=== PATIENT | female | born 1975 | race Caucasian/White ===

== ENCOUNTER 2024-07-19 10:36 | Emergency (ER) | payer SELFPAY ==
[2024-07-19 10:46] VITALS: BP 154/94; PULSE 106; TEMP 37.2; O2SAT 94; BMI 51.2
--- NOTE | 2024-07-19 10:54 | XR_ITS ---
The [address] [address] Patient Name: DONY CLARK MRN: [id number] date: 1975 Sex: F Assigned Patient Location: ER Current Patient Location: Accession/Order Number: [id number] Exam Date: 07/19/2024 11:00 Report Date: 07/19/2024 13:19 At the request of: PHOEBE SAM Procedure: XR chest 1V EXAM: XR chest 1V 07/19/2024 COMPARISON: PA and lateral chest 12/26/2013 FINDINGS: Cardiomediastinal contours are within normal limits. No dense consolidation, effusion, failure or pneumothorax noted. Patient is somewhat obese. Gallbladder surgically absent. No acute osseous abnormality noted. HISTORY: cough XR/XR chest 1V IMPRESSION: No acute cardiopulmonary process suspected. Electronically authenticated by: DEBRA GORDILLO Date: 07/19/2024 13:19
[2024-07-19 11:16] LABS: Influenza Virus A Antigen Negative; Influenza Virus B Antigen Negative; Internal Control Within Normal Limits; Respiratory Syncytial Virus Not Detected (NOT DETECTE); SARS-CoV-2 Ag NEGATIVE (NEGATIVE)
--- NOTE | 2024-07-19 12:06 | ED_ITS ---
HPI - URI/Sore Throat General Chief Complaint: Upper Respiratory Infection Stated Complaint: COUGH, FEVER Time Seen by Provider: 07/19/24 10:45 Source: patient History of Present Illness HPI Narrative: The patient is coming to the ER with a cough for the last 1 month associated with phlegm She did mention that she felt like she have sore throat and she does have some chills for the last few days The patient denies any other complaints but she works in daycare and she been exposed to multiple people with multiple illness Related Data Previous Rx's ?Medication ?Instructions ?Recorded azithromycin 250 mg tablet See Rx Instructions PO .COMPLEX #6 07/19/24 (Zithromax Z-Rick) tabs prednisone 20 mg tablet 40 mg (2 x 20 mg) PO DAILY 5 days 07/19/24 #10 tabs Allergies Allergy/AdvReac Type Severity Reaction Status Date / Time Sulfa (Sulfonamide Allergy Nausea Verified 07/19/24 10:46 Antibiotics) Review of Systems ROS Status of ROS 10 or more systems reviewed and unremark able except as noted in history and below PFSH PFSH Social History Little interest or pleasure in doing things: not at all Feeling down, depressed, or hopeless: several days Exam Narrative Exam Narrative: Nurses notes and vital signs reviewed and patient is not hypoxic. General: Well-appearing and in no apparent distress. Skin: Warm, dry, no pallor noted. No rash. Head: Normocephalic, atraumatic. Neck: Supple, non-tender. Eye: Pupils are equal, round and EOMI. No scleral icterus. Ears, Nose, Mouth, and Throat: TM are clear, no nasal mucosal hypertrophy. Oral mucosa is moist, no posterior oropharynx erythema, uvula is mid-line Cardiovascular: Regular Rate and Rhythm without murmur, gallop or rub. Respiratory: Rhonchi heard in both lung florez Back: No midline thoracic or lumbar vertebral tenderness. No CVA tenderness Musculoskeletal: normal ROM, no calf or popliteal tenderness, no lower extremity edema/swelling GI: Abdomen is soft, non-distended. Normal bowel sounds. No masses appreciated. No tenderness to palpation. No rebound, guarding, or rigidity noted. Neurological: A&O x4. No cranial nerve dysfunction observed. No truncal ataxia. Moves all extremities. Sensation intact. Psychiatric: Cooperative and interactive. Normal mood and affect. Constitutional Vital Signs, click to edit/add: Last Vital Signs Temp 99.0 F 07/19/24 10:46 Pulse 106 H 07/19/24 10:46 Resp 18 07/19/24 10:46 BP 154/94 H 07/19/24 10:46 Pulse Ox 94 L 07/19/24 10:46 O2 Del Method Room Air 07/19/24 10:46 Course Vital Signs Vital signs: Vital Signs Temperature 99.0 F 07/19/24 10:46 Pulse Rate 106 H 07/19/24 10:46 Respiratory Rate 18 07/19/24 10:46 Blood Pressure 154/94 H 07/19/24 10:46 Pulse Oximetry 94 L 07/19/24 10:46 Oxygen Delivery Method Room Air 07/19/24 10:46 Temperature 99.0 F 07/19/24 10:46 Pulse Rate 106 H 07/19/24 10:46 Respiratory Rate 18 07/19/24 10:46 Blood Pressure 154/94 H 07/19/24 10:46 Pulse Oximetry 94 L 07/19/24 10:46 Oxygen Delivery Method Room Air 07/19/24 10:46 MDM - URI/Sore Throat MDM Narrative Medical decision making narrative: COVID flu and RSV test are negative Chest x-ray showed no acute pathology but the patient symptoms has been going on at least for a month with her history I will started the patient on antibiotic as well as prednisone The patient is to follow up with primary care physician in next 2-3 days or to return to the emergency department should any of the signs or symptoms worsen or new symptoms develop. The patient agrees with the following Diagnosis and Treatment plan and the patient will be discharged home. Lab Data Labs: Lab Results 07/19/24 Range/Units 10:55 Influenza Type A Ag Negative Influenza Type B Ag Negative RSV Antigen Not detected (NOT DETECTE) SARS-CoV-2 Ag (CV2AG) Negative (NEGATIVE) Discharge Plan Discharge Chief Complaint: Upper Respiratory Infection Clinical Impression: Cough Patient Disposition: Home, Self-Care Time of Disposition Decision: 12:24 Condition: Good Prescriptions / Home Meds: New azithromycin [Zithromax Z-Rick] 250 mg tablet See Rx Instructions .ROUTE .COMPLEX Qty: 6 0RF Rx Instructions: For 250 mg dose pack: take 500 mg today (day 1), then 250 mg for 4 days (days 2-5) prednisone 20 mg tablet 40 mg PO DAILY 5 Days Qty: 10 0RF Print Language: Yakut Instructions: Chronic Cough (ED) Referrals: [facility] [Primary Care Provider] - 1 week Discharge Date/Time: 07/19/24 12:36
== END 2024-07-19 12:36 | disposition home or self-care (01) ==
PROVIDERS: Emergency Provider Emergency Medicine
DX: R05.9 Cough, unspecified (principal)
CPT/HCPCS: 71045; 87420; 87804; 87811; 99284

== ENCOUNTER 2024-11-06 07:30 | Emergency (ER) | payer OTHER, SELFPAY ==
[2024-11-06 07:35] VITALS: PULSE 80; TEMP 36.6; O2SAT 98; BMI 47.9
--- OUTSIDE RECORDS SUMMARY | 2024-11-06 07:38 | XMS_ITS | CCD ---
Author Organization [facility] Care Team Providers Care Assemblyman Or Woman Name Role Phone YESSY, DR GARCIA Primary Care Unavailable KRISTIE, DR JOHNSON Consulting Unavailable HAY, DR JOHNSON Admitting Unavailable HAY, DR JOHNSON Attending Unavailable INOCENCIA, SHARON Admitting Unavailable SHARON PRO Attending Unavailable KIRANC, DR GARCIA Primary Care Unavailable ZIEBER, DR NIC Sky Consulting Unavailable INOCENCIA, SHARON Consulting Unavailable MISC, DR GARCIA Primary Care Unavailable HAY, DR JOHNSON Admitting Unavailable HAY, DR JOHNSON Attending Unavailable HAY, DR JOHNSON Consulting Unavailable Oksana Holliday Unavailable Evita Stoner Unavailable NON STAFF Primary Care Unavailable Oksana Holliday Attending Unavailable Oksana Holliday Admitting Unavailable [facility] Primary Care Unava ilable NIC SAUNDERS Attending Unavailable RENE HARTMANN Attending Unavailable RENE HARTMANN Referring Unavailable [facility] Primary Care Unava ilable [facility] Primary Care Unava ilable RENE HARTMANN Attending Unavailable Allergies Allergy Classification Reported Allergen(s) Allergy Type Date of Onset Reaction(s) Facility (1 source) Sulfonamides (Antibiotic) Drug allergy (disorder) [address] [facility] Repository (10 sources) Substance with sulfonamide structure and antibacterial mechanism of action (substance) Drug allergy Unknown [facility] Other (2 sources) Sulfonamides (Antibiotic); Translations: [SULFA (SULFONAMIDE ANTIBIOTICS)] Drug allergy (disorder) 7 [facility] Repository Medications Current Medications Medication Drug Class(es) Dates Sig (Normalized) Sig (Original) Jencycla (3 sources) Start: 06-23-2023 Jencycla May, Active 3 ml liraglutide 6 mg/ml pen injector (6 sources) GLP-1 Receptor Agonist Start: 05-09-2023 inject 0.6 mg by subcutaneous injection once daily Victoza 18 MG/3ML 0.6 mg Subcutaneous daily for 30 days Titrate to 1.2 mg daily Apr, Active inject 1.2 mg by sub cutaneous injection once daily Victoza 18 MG/3ML 1.2 mg Subcutaneous daily for 30 days dispense QS for 1.2 mg daily Active lisinopril 2.5 mg oral tablet (6 sources) Angiotensin Converting Enzyme Inhibitor take 1 tablet by mouth every twenty-four hours Lisinopril 2.5 MG 1 tablet Orally Once a day for 30 days Active 24 hr metFORMIN hydrochloride 500 mg extended release oral tablet (6 sources) Biguanide take 1 tablet by mouth once daily metFORMIN HCl ER 500 MG take 1 tablet by mouth daily WITH EVENING MEAL Oral for 30 Days Active rosuvastatin calcium 5 mg oral tablet (6 sources) HMG-CoA Reductase Inhibitor take 1 tablet by mouth once daily Rosuvastatin Calcium 5 MG take 1 tablet by mouth once daily Oral for 30 Days Active Completed/Discontinued Medications Medication Drug Class(es) Dates Sig (Normalized) Sig (Original) Cholecalciferol (14 sources) Vitamin D Start: 04-03-2023 take 1 capsule by mouth every week as needed Cholecalciferol 1.25 MG (50782 UT) 1 capsule Orally weekly for 56 days Follow with 4000 international units once daily thereafter Mar, Not-Taking/PRN Start: 04-03-2023 take 1 capsule by mo uth every week Cholecalciferol 1.25 MG (00337 UT) 1 capsule Orally weekly for 56 days Follow with 4000 international units once daily thereafter Mar, Active take 2 capsules by m outh every twenty-four hours Vitamin D3 50 MCG (2000 UT) 2 capsules Orally Once a day Active take 1 capsule by mo uth every week Cholecalciferol 1.25 MG (13515 UT) 1 capsule Orally weekly for 56 days then 4000 iu OTC after Active Problems Active Problems Problem Classification Problem Date Documented Da te Episodic/Chronic Anal and rectal conditions (1 source) Anal fissure, unspecified; Translations: [Anal fissure, unspecified] Onset: 5 Episodic Diabetes mellitus without complication (8 sources) Type 2 diabetes mellitus without complication; Translations: [Type 2 diabetes mellitus without complications] Chronic Diabetes mellitus without complication (4 sources) Other abnormal glucose Episodic Disorders of lipid metabolism (20 sources) Hypertriglyceridemia; Translations: [Pure hyperglyceridemia] Chronic Essential hypertension (15 sources) Essential (primary) hypertension; Translations: [Hypertensive disorder] Onset: 2 Chronic Gastrointestinal hemorrhage (1 source) Rectal hemorrhage Onset: 5 Episodic Gastrointestinal hemorrhage (1 source) Gastrointestinal hemorrhage Onset: 5 Mood disorders (14 sources) Major depressive disorder, single episode, unspecified; Translations: [Depression] Chronic Nutritional deficiencies (14 sources) Vitamin D deficiency; Translations: [Vitamin D deficiency, unspecified] Chronic Other connective tissue disease (4 sources) Pain in right foot; Translations: [PAIN IN RIGHT FOOT] Onset: 2 Episodic Other nutritional; endocrine; and metabolic disorders (10 sources) Body mass index 40+ - severely obese; Translations: [Body mass index (BMI) 45.0-49.9, adult] Chronic Other nutritional; endocrine; and metabolic disorders (10 sources) Metabolic syndrome X; Translations: [Metabolic syndrome] Chronic Other nutritional; endocrine; and metabolic disorders (19 sources) Obesity; Translations: [Obesity, unspecified] 08-12-2023 Chronic Other nutritional; endocrine; and metabolic disorders (5 sources) Obesity, unspecified Chronic Other nutritional; endocrine; and metabolic disorders (5 sources) Body mass index (BMI) 45.0-49.9, adult Chronic Other nutritional; endocrine; and metabolic disorders (4 sources) Metabolic syndrome Chronic Other nutritional; endocrine; and metabolic disorders (8 sources) Obese class II; Translations: [Body mass index (BMI) 35.0-35.9, adult] Chronic Spondylosis; intervertebral disc disorders; other back problems (3 sources) Lumbago with sciatica, left side; Translations: [Dorsalgia, unspecified] Onset: 2 Episodic Unclassified (2 sources) LOW BACK PAIN, UNSPECIFIED; Translations: [LOW BACK PAIN, UNSPECIFIED] Onset: 2 Unclassified (2 sources) CONTACT W/AND (SUSP) EXPOS COVID-19; Translations: [CONTACT W/AND (SUSP) EXPOS COVID-19] Onset: 1 Viral infection (1 source) COVID-19; Translations: [COVID-19] Onset: 1 Past or Other Problems Problem Classification Problem Date Documented Da te Episodic/Chronic Abdominal pain (1 source) Epigastric pain; Translations: [Epigastric pain] Onset: 10-23-2023 Episodic Administrative/social admission (1 source) Dietary counseling and surveillance; Translations: [Dietary counseling and surveillance] Onset: 06-27-2023 Episodic Nonspecific chest pain (2 sources) Chest pain, unspecified; Translations: [Chest pain] Onset: 10-23-2023 Episodic Other aftercare (1 source) Other superintendent terminal (current) drug therapy; Translations: [OTH PROFESSOR OF BIOLOGICAL SCIENCES CURRENT DRUG THERAPY] Onset: 09-05-2021 Episodic Other aftercare (1 source) oil heaterman (current) use of oral hypoglycemic drugs; Translations: [NURSING HOME USE ORAL HYPOGLYCEMIC DX] Onset: 09-05-2021 Episodic Residual codes; unclassified (1 source) Acquired absence of other specified parts of digestive tract; Translations: [ACQ ABSENCE OTH PART DIGESTV TRACT] Onset: 09-05-2021 Episodic Unclassified (1 source) LOW BACK PAIN, UNSPECIFIED; Translations: [LOW BACK PAIN, UNSPECIFIED] Onset: 09-01-2021 Unclassified (1 source) CONTACT W/AND (SUSP) EXPOS COVID-19; Translations: [CONTACT W/AND (SUSP) EXPOS COVID-19] Onset: 06-18-2021 Results Test Name Value Interpretation Reference Range Facility CBC AND AUTO DIFFon 10-23-19 24 ABSOLUTE BASOPHIL 0.1 X10E9/L Normal 0.0-0.2 [facility] Comment on above: Performed By: #### C ANDRES, 92490-7, [facility], 14325-8 #### [facility] ([id number]) [address] [place] [address] 87678 ABSOLUTE NEUTROPHIL 3.4 X10E9/L Normal 1.5-6.6 [facility] Comment on above: Performed By: #### C ANDRES, 52092-6, [facility], 15302-1 #### [facility] ([id number]) [address] [place] [address] 09245 Basophils/100 WBC (Bld) 0.9 % Normal [facility] Comment on above: Performed By: #### Mp CAMPOS, 05560-3, CMP, 21291-5 #### [facility] ([id number]) [address] [place] [address] 78667 Eosinophils (Bld) [#/Vol] 0.1 10*3/uL Normal 0.0-0.4 [facility] Comment on above: Performed By: #### Mp CAMPOS, 77763-3, CMP, 10305-2 #### [facility] ([id number]) [address] [place] [address] 49611 Eosinophils/100 WBC (Bld) 1.9 % Normal [facility] Comment on above: Performed By: #### Mp CAMPOS, 48164-1, CMP, 41335-8 #### [facility] ([id number]) [address] [place] [address] 51991 Erythrocyte distribution width (RBC) [Ratio] 14.5 % Normal 11.5-15.0 [facility] Comment on above: Performed By: #### Mp CAMPOS, 35141-4, CMP, 50989-1 #### [facility] ([id number]) [address] [place] [address] 35671 Hematocrit (Bld) [Volume fraction] 36.0 % Normal 35-47 [facility] Comment on above: Performed By: #### Mp CAMPOS, 43597-3, CMP, 81214-3 #### [facility] ([id number]) [address] [place] [address] 43617 Hemoglobin (Bld) [Mass/Vol] 12.2 g/dL Normal 11.7-15.5 [facility] Comment on above: Performed By: #### Mp CAMPOS, 56660-2, CMP, 97474-8 #### [facility] ([id number]) [address] [place] [address] 47089 Lymphocytes (Bld) [#/Vol] 2.5 10*3/uL Normal 1.0-3.5 [facility] Comment on above: Performed By: #### Mp CAMPOS, 20836-4, CMP, 91876-4 #### [facility] ([id number]) [address] [place] [address] 20963 Lymphocytes/100 WBC (Bld) 38.1 % Normal [facility] Comment on above: Performed By: #### Mp CAMPOS, 90215-5, CMP, 44338-6 #### [facility] ([id number]) [address] [place] [address] 51334 MCH (RBC) [Entitic mass] 29.4 pg Normal 27-34 [facility] Comment on above: Performed By: #### Mp CAMPOS, 50600-2, CMP, 75630-4 #### [facility] ([id number]) [address] [place] [address] 44390 MCHC (RBC) [Mass/Vol] 34.0 g/dL Normal 32-36 [facility] Comment on above: Performed By: #### Mp CAMPOS, 79494-4, CMP, 92471-0 #### [facility] ([id number]) [address] [place] [address] 37904 MCV (RBC) [Entitic vol] 87 fL Normal 80-100 [facility] Comment on above: Performed By: #### Mp CAMPOS, 69707-8, CMP, 52948-2 #### [facility] ([id number]) [address] [place] [address] 00083 Monocytes (Bld) [#/Vol] 0.4 10*3/uL Normal 0-0.9 [facility] Comment on above: Performed By: #### Mp CAMPOS, 06031-5, CMP, 15958-3 #### [facility] ([id number]) [address] [place] [address] 07922 Monocytes/100 WBC (Bld) 6.6 % Normal [facility] Comment on above: Performed By: #### Mp CAMPOS, 21950-9, CMP, 85522-9 #### [facility] ([id number]) [address] [place] [address] 74622 Neutrophils/100 WBC (Bld) 52.5 % Normal [facility] Comment on above: Performed By: #### Mp CAMPOS, 86618-6, CMP, 65305-2 #### [facility] ([id number]) [address] [place] [address] 52184 Platelet mean volume (Bld) [Entitic vol] 7.4 fL Normal 7-12 [facility] Comment on above: Performed By: #### Mp CAMPOS, 34503-1, CMP, 39557-6 #### [facility] ([id number]) [address] [place] [address] 41353 Platelets (Bld) [#/Vol] 363 10*3/uL Normal 150-450 [facility] Comment on above: Performed By: #### Mp CAMPOS, 10220-2, CMP, 24796-8 #### [facility] ([id number]) [address] [place] [address] 10433 RBC COUNT 4.16 X10E12/L Normal 3.80-5.20 [facility] Comment on above: Performed By: #### Mp CAMPOS, 13690-5, CMP, 74576-4 #### [facility] ([id number]) [address] [place] [address] 00336 WBC (Bld) [#/Vol] 6.5 10*3/uL Normal 4.0-11.0 [facility] Comment on above: Performed By: #### Mp CAMPOS, 29580-4, CMP, 15869-4 #### [facility] ([id number]) [address] [place] [address] [place] [address] COMPREHENSIVE METABOLIC PANE Alex 10-23-2023 Albumin [Mass/Vol] 3.9 g/dL Normal 3.2-5.3 [facility] Comment on above: Performed By: #### C BCA, 21871-5, CMP, 66183-7 #### [facility] ([id number]) [address] [place] [address] 69057 ALP [Catalytic activity/Vol] 102 U/L Normal 39-130 [facility] Comment on above: Performed By: #### Mp BCA, 73627-7, CMP, 24075-1 #### [facility] ([id number]) [address] [place] [address] 39002 ALT [Catalytic activity/Vol] 19 U/L Normal 0-31 [facility] Comment on above: Performed By: #### Mp BCA, 37832-4, CMP, 00989-9 #### [facility] ([id number]) [address] [place] [address] 31847 Anion gap [Moles/Vol] 7 mmol/L Normal 5-15 [facility] Comment on above: Performed By: #### Mp BCA, 63316-8, CMP, 41567-1 #### [facility] ([id number]) [address] [place] [address] 81377 AST [Catalytic activity/Vol] 18 U/L Normal 0-41 [facility] Comment on above: Performed By: #### C BCA, 03830-6, CMP, 55474-3 #### [facility] ([id number]) [address] [place] [address] 86499 Bilirubin [Mass/Vol] 0.6 mg/dL Normal 0.3-1.2 [facility] Comment on above: Performed By: #### Mp BCA, 51559-2, CMP, 10646-5 #### [facility] ([id number]) [address] [place] [address] 02096 Calcium [Mass/Vol] 8.6 mg/dL Normal 8.5-10.5 [facility] Comment on above: Performed By: #### C BCA, 81405-7, CMP, 13429-0 #### [facility] ([id number]) [address] [place] [address] 11071 Chloride [Moles/Vol] 102 mmol/L Normal 98-109 [facility] Comment on above: Performed By: #### C BCA, 91613-9, CMP, 02431-2 #### [facility] ([id number]) [address] [place] [address] 18864 CO2 [Moles/Vol] 25 mmol/L Normal 22-32 [facility] Comment on above: Performed By: #### C BCA, 43370-3, CMP, 36806-8 #### [facility] ([id number]) [address] [place] [address] 67501 Creatinine [Mass/Vol] 0.79 mg/dL Normal 0.40-1.00 [facility] Comment on above: Result Comment: METH OD TRACEABLE TO IDMS STANDARD Performed By: #### C BCA, 13852-5, CMP, 11259-4 #### [facility] ([id number]) [address] [place] [address] 17316 eGFR (CKD-EPI) NON-RACE DEPENDENT >90 Normal >59 [facility] Comment on above: Result Comment: Reported eGFR is based on the CKD-EPI 2020 equation that does not use a race coefficient. Performed By: #### C BCA, 18861-4, CMP, 88446-0 #### [facility] ([id number]) [address] [place] [address] 25273 Glucose [Mass/Vol] 128 mg/dL High 65-99 [facility] Comment on above: Performed By: #### C BCA, 11255-0, [facility], 24461-9 #### [facility] ([id number]) [address] [place] [address] 62554 Potassium [Moles/Vol] 3.6 mmol/L Normal 3.5-5.0 [facility] Comment on above: Performed By: #### C BCA, 69556-8, [facility], 70189-1 #### [facility] ([id number]) [address] [place] [address] 76164 Protein [Mass/Vol] 7.2 g/dL Normal 6.0-8.0 [facility] Comment on above: Performed By: #### C BCA, 96059-7, [facility], 56234-8 #### [facility] ([id number]) [address] [place] [address] 66278 Sodium [Moles/Vol] 134 mmol/L Normal 134-146 [facility] Comment on above: Performed By: #### C BCA, 12180-8, [facility], 86664-7 #### [facility] ([id number]) [address] [place] [address] 78889 Urea nitrogen [Mass/Vol] 11 mg/dL Normal 5-23 [facility] Comment on above: Performed By: #### Mp BCA, 40569-3, [facility], 94886-5 #### [facility] ([id number]) [address] [place] [address] 72402 Fibrin D-dimer DDU (PPP) [Ma ss/Vol]on 10-23-2023 D DIMER 179 ng/mL DDU Normal <255 [facility] Comment on above: Result Comment: Results <255 ng/mL DDU: The presence of a VTE can safely be excluded with a negative D-Dimer result and Wells score. A negative result doesn't exclude the possibility of DIC. The test be repeated along with other diagnostic tests if the patient's symptoms persist or worsen. [email or web address] Performed By: #### C BCA, 63049-7, CMP, 01023-3 #### [facility] ([id number]) [address] [place] [address] 42414 Troponin I.cardiac High sens itivity method [Mass/Vol]on 10-23-2023 1 HOUR TROP I, HIGH SENSITIVITY <2 Normal <16 [facility] Comment on above: Performed By: #### 8 9579-7 #### [facility] ([id number]) [address] [place] [address] 52614 TROPONIN I, HIGH SENSITIVITY <2 Normal <16 [facility] Comment on above: Performed By: #### C BCA, 18009-8, CMP, 27246-8 #### [facility] ([id number]) [address] [place] [address] 45548 XR CHEST 1 VWon 10-23-2023 XR CHEST 1 VW XR CHEST 1 VW XR CHEST 1 VW CLINICAL INDICATION: Chest pain . COMPARISON STUDY: 06/15/2023. IMPRESSION: 1. Likely retrocardiac subsegmental atelectasis. 2. No pleural effusion or pneumothorax. 3. Normal cardiomediastinal silhouette. 4. Similar appearance calcific tendinosis of the right shoulder. Finalized by Gabo Kennedy on 10/23/2023 9:22 AM Normal [facility] Covid-19 PCR (CVDTBH)on 05-25 SARS-CoV-2 (COVID-19) RNA RAFA+probe Ql (Unsp spec) Detected Critically abnormal NOT DETECTED [facility] Comment on above: Result Comment: This test is not yet approved or cleared by the [place] FDA. When there are no FDA-approved or cleared tests available, and other criteria are met, FDA can make tests available under an emergency access mechanism called an Emergency Use Authorization (EUA). The EUA for this test is supported by the Field Sales Representative of Health and Human Service's (HHS's) declaration that circumstances exist to justify the emergency use of in vitro diagnostics for the detection and/or diagnosis of the virus that causes COVID-19. This EUA will remain in effect (meaning this test can be used) for the duration of the COVID-19 declaration justifying emergency of IVDs, unless it is terminated or revoked by FDA (after which the test may no longer be used). Performed By: #### C [facility] #### [facility] [address] [place] [address] Dr. Jessee Madera Vital Signs Date Time Vital Sign Value Performing Clinician Facility 06-27-2023 10:45-0500 Body height 158.75 cm Oksana Scally [facility] Other 06-27-2023 10:45-0500 Body mass index (BMI) [Ratio] 47.75 kg/m2 Oksana Scally [facility] Other 06-27-2023 10:45-0500 Body weight 120.34 kg Oksana Scally [facility] Other 06-27-2023 10:45-0500 Diastolic blood pressure 85 mm[Hg] Oksana Scally [facility] Other 06-27-2023 10:45-0500 Respiratory rate 20 /min Oksana Scally [facility] Other 06-27-2023 10:45-0500 SaO2% (BldA) [Mass fraction] 95 % Oksana Scally [facility] Other 06-27-2023 10:45-0500 Systolic blood pressure 133 mm[Hg] Oksana Scally [facility] Other 05-09-2023 12:45-0500 Body height 158.75 cm Oksana Scally [facility] Other 05-09-2023 12:45-0500 Body mass index (BMI) [Ratio] 49.4 kg/m2 Oksana Scally [facility] Other 05-09-2023 12:45-0500 Body weight 124.51 kg Oksana Scally [facility] Other 05-09-2023 12:45-0500 Diastolic blood pressure 88 mm[Hg] Oksana Scally [facility] Other 05-09-2023 12:45-0500 Respiratory rate 20 /min Oksana Scally [facility] Other 05-09-2023 12:45-0500 SaO2% (BldA) [Mass fraction] 98 % Oksana Scally [facility] Other 05-09-2023 12:45-0500 Systolic blood pressure 121 mm[Hg] Oksana Scally [facility] Other 04-09-2023 15:15-0400 Body height 158.75 cm Evita Stoner [facility] Other 03-25-2023 14:30-0400 Body height 158.75 cm Oksana Scally [facility] Other 03-25-2023 14:30-0400 Body mass index (BMI) [Ratio] 49.8 kg/m2 Oksana Scally [facility] Other 03-25-2023 14:30-0400 Body weight 125.51 kg Oksana Scally [facility] Other 03-25-2023 14:30-0400 Diastolic blood pressure 86 mm[Hg] Oksana Scally [facility] Other 03-25-2023 14:30-0400 Respiratory rate 18 /min Oksana Scally [facility] Other 03-25-2023 14:30-0400 SaO2% (BldA) [Mass fraction] 98 % Oksana Scally [facility] Other 03-25-2023 14:30-0400 Systolic blood pressure 145 mm[Hg] Oksana Scally [facility] Other 08-08-2022 16:00-0500 Body height 158.75 cm Oksana Scally [facility] Other 08-08-2022 16:00-0500 Body mass index (BMI) [Ratio] 48.39 kg/m2 Oksana Scally [facility] Other 08-08-2022 16:00-0500 Body weight 121.97 kg Oksana Scally [facility] Other 08-08-2022 16:00-0500 Diastolic blood pressure 76 mm[Hg] Oksana Scally [facility] Other 08-08-2022 16:00-0500 Respiratory rate 20 /min Oksana Scally [facility] Other 08-08-2022 16:00-0500 SaO2% (BldA) [Mass fraction] 97 % Oksana Holliday [facility] Other 08-08-2022 16:00-0500 Systolic blood pressure 116 mm[Hg] Oksana Holliday [facility] Other Encounters Encounter Date Encounter Type Care Provider Facility Start: 10-19-2024 End: 10-19-2024 Emergency department patient visit [facility] Start: 10-23-2023 End: 10-24-2023 Emergency department patient visit [facility] Start: 07-17-2023 End: 07-17-2023 ambulatory Oksana Holliday [facility] Other Start: 07-17-2023 Telephone encounter [facility] Start: 07-03-2023 End: 07-03-2023 ambulatory Oksana Holliday [facility] Other Start: 07-03-2023 Telephone encounter Oksana [facility] Start: 06-27-2023 ([facility]/U) Weight Management f/u Oksana Holliday [facility] Start: 06-27-2023 End: 06-27-2023 ambulatory NON STAFF Elysia Other Start: 05-30-2023 End: 05-30-2023 ambulatory Oksana Holliday [facility] Other Start: 05-30-2023 Telephone encounter Oksana [facility] Start: 05-13-2023 End: 05-13-2023 ambulatory Evita Fitt [facility] Other Start: 05-13-2023 Telephone encounter Evita Moses [facility] Start: 05-09-2023 [facility] Weight Management f/u Oksana Holliday [facility] Start: 05-09-2023 End: 05-09-2023 ambulatory Oksana Caleshay [facility] Other Start: 04-09-2023 End: 04-09-2023 ambulatory Evita Garsiat [facility] Other Start: 04-09-2023 IBT FOR OBESITY GROU P 2-10 30M Evitapatrice Stoner [facility] Start: 04-03-2023 End: 04-03-2023 ambulatory Oksana Caleshay [facility] Other Start: 04-03-2023 Telephone encounter [facility] Start: 03-25-2023 [facility] Weight Management f/u Oksana Holliday [facility] Start: 03-25-2023 End: 03-25-2023 ambulatory Oksana Holliday [facility] Other Start: 08-08-2022 End: 08-08-2022 ambulatory Oksana Holliday [facility] Other Start: 08-08-2022 Nutrition therapy Oksana Caleshay [facility] Start: 04-10-2022 End: 04-11-2022 ambulatory SHARON PRO Facility:[facility] Start: 09-01-2021 End: 09-01-[address] DOCTOR KRISHNAMURTHY Facility:[facility] Start: 06-18-2021 End: 06-18-[address] DOCTOR KRISHNAMURTHY Facility:[facility] Payers Date Payer Category Payer Unknown [id number] 2023 Unknown [id number] 2023 Medicaid [id number] 2. [id number] 2023 Self-pay 1975 Unknown [id number] 2.16.84 [id number] 1977 Unknown [id number] 2.16.84 [id number] 1977 Unknown [id number] 2.16.84 [id number] 1977 Unknown [id number] 1975 Unknown [id number] [id number] 1975 Unknown [id number] [id number] [id number] 1957 Unknown [id number] Unknown [id number] 2.16.8 [id number] Social History Date Type Detail Facility Unknown if ever smoked Sonics Other Sex Assigned At Sex Assigned At Bir th [facility] Other Start: 1975 Sex Assigned At Female [facility] Medical Equipment Procedure Code Equipment Code Equipment Origin al Text Equipment Identifier Dates [place] 32G X 4 MM Start: 05-09-2023 Clinical Notes 04-11-2022 to 06-27-2023 Note Date & Type Note Facility 06-27-2023 Evaluation note Encounter Date Diagnosis Assessment Notes Jun, Obesity (ICD-10 - E66.9) We have discussed weight management program at [facility]. We discussed components of long-term weight management including body, mind, spirit. Body includes proper caloric intake to feel yet within caloric needs. We discussed exercises component weight loss. We discussed behavioral triggers to eating as well as being mindful of the equity of her foods. We discussed management of emotional concerns and motivations to ensure long-term success. We discussed that interval calculated change will promote results and long-term engagement. We discussed dynamic motivations, distractions and interval evaluations necessary for long-term change in a continuous reevaluation of mindfulness is imperative. We discussed continued follow-up despite progress to stay accountable and to allow staff to assist with barriers. Jun, BMI 45.0-49.9, adult (ICD-10 - Z68.42) Jun, Depression (ICD-10 - F32.9) Consideration mental health to assure proper goal setting and strategies for success. Now on Zoloft per [facility]. tolerating Jun, Hypertension (ICD-10 - I10) We discussed that the AHA recommends no more than 2,300 mg a daily as an ideal limit, but no more than 1,500 mg daily for most adults, especially those with HTN. Soduim intake below 1,000 mg per day can further improve blood pressure and heart health. Jun, Vitamin D deficiency (ICD-10 - E55.9) Vitamin D deficiency suspected. Vitamin D has been noted to have positive impact on mood and energy. We can recheck periodically and make recommendations for long-term supplementation with knmv-zdj-fwvfvjq formulations or prescription grade repletion. Jun, Prediabetes (ICD-10 - R73.09) Discussed how diabetes II delayed or avoided with lifestyle changes such as, losing weight, being active, improving dietary intake. Discussed the risks for diabetes. Explained that weight loss of 5-10% can have significant impact. Consistent with weight management recommendations, encouraged diet rich in fruits, vegetables, low fat dairy, low in red meat sweets and refined grains. Stay away from soda and fruit juice. Increase activity 30 minutes most days of the week. Jun, Hypertriglyceridemia (ICD-10 - E78.1) Recheck intervally with dietary change to see if improvement. Contributes to metabolic picture Jun, Hyperlipidemia (ICD-10 - E78.5) Jun, Metabolic syndrome (ICD-10 - E88.81) Jun, Diabetes mellitus treated with oral medication (ICD-10 - E11.9) Jun, Other I have spent 30 minutes with this patient and over 50% of the visit was counseling done by myself, Domenica MARIN. [facility] Other 11-16-2023 Evaluation note* Encounter Date Diagnosis Assessment Notes Treatment Notes Treatment Clinical Notes Apr, Obesity (ICD-10 - E66.9) We have discussed weight management program at [facility]. We discussed components of long-term weight management including body, mind, spirit. Body includes proper caloric intake to feel yet within caloric needs. We discussed exercises component weight loss. We discussed behavioral triggers to eating as well as being mindful of the equity of her foods. We discussed management of emotional concerns and motivations to ensure long-term success. We discussed that interval calculated change will promote results and long-term engagement. We discussed dynamic motivations, distractions and interval evaluations necessary for long-term change in a continuous reevaluation of mindfulness is imperative. We discussed continued follow-up despite progress to stay accountable and to allow staff to assist with barriers. Apr, BMI 45.0-49.9, adult (ICD-10 - Z68.42) Apr, Depression (ICD-10 - F32.9) Consideration mental health to assure proper goal setting and strategies for success Apr, Hypertension (ICD-10 - I10) We discussed that the AHA recommends no more than 2,300 mg a daily as an ideal limit, but no more than 1,500 mg daily for most adults, especially those with HTN. Soduim intake below 1,000 mg per day can further improve blood pressure and heart health. Apr, Vitamin D deficiency (ICD-10 - E55.9) Vitamin D deficiency suspected. Vitamin D has been noted to have positive impact on mood and energy. We can recheck periodically and make recommendations for long-term supplementation with yrpd-mok-aqvssjz formulations or prescription grade repletion. Apr, Prediabetes (ICD-10 - R73.09) Discussed how diabetes II delayed or avoided with lifestyle changes such as, losing weight, being active, improving dietary intake. Discussed the risks for diabetes. Explained that weight loss of 5-10% can have significant impact. Consistent with weight management recommendations, encouraged diet rich in fruits, vegetables, low fat dairy, low in red meat sweets and refined grains. Stay away from soda and fruit juice. Increase activity 30 minutes most days of the week. Apr, Hypertriglyceridemia (ICD-10 - E78.1) Recheck intervally with dietary change to see if improvement. Contributes to metabolic picture Apr, Hyperlipidemia (ICD- 10 - E78.5) Apr, Metabolic syndrome (ICD-10 - E88.81) Apr, Diabetes mellitus tr eated with oral medication (ICD-10 - E11.9) Apr, Other Maxine was taug ht how to inject Victoza by demonstration and handout. She was able to return demonstration successfully. 15 minutes were spent instructing the patient by Randa Patterson RN, [facility]. I have spent 60 minutes with this patient and over 50% of the visit was counseling done by myself, Domenica MARIN. [facility] Other 10-17-2023 Evaluation note* Encounter Date Diagnosis Assessment Notes Treatment Notes Treatment Clinical Notes Mar, Obesity, unspecified classification, unspecified obesity type, unspecified whether serious comorbidity present (ICD-10 - E66.9) Mar, BMI 45.0-49.9, adult (ICD-10 - Z68.42) Mar, Other Summary of Visi t: (A) Presentation of Plate Method discussed (B) Sample meal ideas reviewed (C) exercise recommendations reviewed Patient set the following goals: - patient set personal goal using given handout. [facility] Other 10-02-2023 Evaluation note* Encounter Date Diagnosis Assessment Notes Treatment Notes Treatment Clinical Notes Mar, Obesity (ICD-10 - E66.9) We have discussed weight management program at [facility]. We discussed components of long-term weight management including body, mind, spirit. Body includes proper caloric intake to feel yet within caloric needs. We discussed exercises component weight loss. We discussed behavioral triggers to eating as well as being mindful of the equity of her foods. We discussed management of emotional concerns and motivations to ensure long-term success. We discussed that interval calculated change will promote results and long-term engagement. We discussed dynamic motivations, distractions and interval evaluations necessary for long-term change in a continuous reevaluation of mindfulness is imperative. We discussed continued follow-up despite progress to stay accountable and to allow staff to assist with barriers. Mar, BMI 45.0-49.9, adult (ICD-10 - Z68.42) Mar, Depression (ICD-10 - F32.9) Consideration mental health to assure proper goal setting and strategies for success Mar, Hypertension (ICD-10 - I10) We discussed that the AHA recommends no more than 2,300 mg a daily as an ideal limit, but no more than 1,500 mg daily for most adults, especially those with HTN. Soduim intake below 1,000 mg per day can further improve blood pressure and heart health. Mar, Vitamin D deficiency (ICD-10 - E55.9) Vitamin D deficiency suspected. Vitamin D has been noted to have positive impact on mood and energy. We can recheck periodically and make recommendations for long-term supplementation with xypl-tuo-tsduibe formulations or prescription grade repletion. Mar, Prediabetes (ICD-10 - R73.09) Discussed how diabetes II delayed or avoided with lifestyle changes such as, losing weight, being active, improving dietary intake. Discussed the risks for diabetes. Explained that weight loss of 5-10% can have significant impact. Consistent with weight management recommendations, encouraged diet rich in fruits, vegetables, low fat dairy, low in red meat sweets and refined grains. Stay away from soda and fruit juice. Increase activity 30 minutes most days of the week. Mar, Hypertriglyceridemia (ICD-10 - E78.1) Recheck intervally with dietary change to see if improvement. Contributes to metabolic picture Mar, Hyperlipidemia (ICD- 10 - E78.5) Mar, Metabolic syndrome (ICD-10 - E88.81) Mar, Other I have spent 60 minutes with this patient and over 50% of the visit was counseling done by myself, Domenica MARIN. [facility] Other 02-15-2023 Evaluation note* Encounter Date Diagnosis Assessment Notes Treatment Notes Treatment Clinical Notes Jul, Obesity (ICD-10 - E66.9) We have discussed weight management program at [facility]. We discussed components of long-term weight management including body, mind, spirit. Body includes proper caloric intake to feel yet within caloric needs. We discussed exercises component weight loss. We discussed behavioral triggers to eating as well as being mindful of the equity of her foods. We discussed management of emotional concerns and motivations to ensure long-term success. We discussed that interval calculated change will promote results and long-term engagement. We discussed dynamic motivations, distractions and interval evaluations necessary for long-term change in a continuous reevaluation of mindfulness is imperative. We discussed continued follow-up despite progress to stay accountable and to allow staff to assist with barriers. Jul, BMI 45.0-49.9, adult (ICD-10 - Z68.42) Jul, Depression (ICD-10 - F32.9) Consideration mental health to assure proper goal setting and strategies for success Jul, Hypertension (ICD-10 - I10) We discussed that the AHA recommends no more than 2,300 mg a daily as an ideal limit, but no more than 1,500 mg daily for most adults, especially those with HTN. Soduim intake below 1,000 mg per day can further improve blood pressure and heart health. Jul, Vitamin D deficiency (ICD-10 - E55.9) Vitamin D deficiency suspected. Vitamin D has been noted to have positive impact on mood and energy. We can recheck periodically and make recommendations for long-term supplementation with onee-fxj-jynbpyq formulations or prescription grade repletion. Jul, Prediabetes (ICD-10 - R73.09) Discussed how diabetes II delayed or avoided with lifestyle changes such as, losing weight, being active, improving dietary intake. Discussed the risks for diabetes. Explained that weight loss of 5-10% can have significant impact. Consistent with weight management recommendations, encouraged diet rich in fruits, vegetables, low fat dairy, low in red meat sweets and refined grains. Stay away from soda and fruit juice. Increase activity 30 minutes most days of the week. Jul, Hypertriglyceridemia (ICD-10 - E78.1) Recheck intervally with dietary change to see if improvement. Contributes to metabolic picture Jul, Hyperlipidemia (ICD- 10 - E78.5) Jul, Metabolic syndrome (ICD-10 - E88.81) Jul, Other I have spent 60 minutes with this patient and over 50% of the visit was counseling done by myself, Domenica MARIN. [facility] Other 10-19-2022 NotePROCEDURE: XR FOOT RT MIN 3 VIEWS HISTORY: Pain in right foot ; chronic lateral foot pain COMPARISON: None. FINDINGS: BONES: Large calcaneal plantar spur. No fracture, acute abnormality, or significant arthropathy. SOFT TISSUES:No visible soft tissue swelling. EFFUSION:None visible. OTHER: Negative. IMPRESSION: 1. No acute bone abnormality or significant degenerative joint disease. 2. Large calcaneal plantar spur of uncertain clinical significant. Electronically authenticated by: NIC ROGEL Date: 2022-04-11 16:12[facility] noteNo assessment information availableTrihealth Good Samaritan Hospital Work Phone: Evaluation noteNo InformationNort [employer] Other History general Narrative - Reported* Type Description Date Medical History prediabetes Medical History Hypertension Surgical History cyst removal Surgical History cholecystectomy Surgical History D&C Hospitalization History See Above [facility] Other Hisyrtd general Narrative - Reported* Type Description Date Medical History prediabetes Medical History Hypertension Surgical History cyst removal Surgical History cholecystectomy Surgical History D&C Surgical History Uterine biopsy Hospitalization History See Above [facility] Other Hisbfks general Narrative - Reported* Type Description Date Medical History prediabetes Medical History Hypertension Surgical History cyst removal Surgical History cholecystectomy Surgical History D&C Surgical History Uterine biopsy Hospitalization History See Above Hospitalization History [facility] pain unknown chest pain 06-09-2023 Son[facility] Other Summary Purpose Family History No Family History Records Found Relationship Condition Age at Onset Recorded Date/T mary father Malignant neoplasm Unknown Diabetes mellitus Unknown Unknown Hypertension Unknown Advance Directives No Advanced Directives Records FoundNo Advanced Directives Records FoundNo Advanced Directives Records Found Additional Source Comments INFORMATION SOURCE (unrecogn ized section and content) DATE CREATED AUTHOR 04/15/2022 [facility] DATE CREATED AUTHOR AUTHOR'S ORGANIZ ATION 11/25/2023 [facility] DATE CREATED AUTHOR AUTHOR'S ORGANIZ ATION 10/19/2024 [facility] REASON FOR VISIT (unrecogniz ed section and content) Initial WMNrestart, Initial WMNWMN 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 This clinical summary was aggregated from multiple sources. Caution should be exercised in using it in the provision of clinical care. This summary normalizes information from multiple sources, and as a consequence, information in this document may materially change the coding, format and clinical context of patient data. In addition, data may be omitted in some cases. CLINICAL DECISIONS SHOULD BE BASED ON THE PRIMARY CLINICAL RECORDS. [facility] [employer] [facility]. provides no warranty or guarantee of the accuracy or completeness of information in this document.
[2024-11-06 07:43] VITALS: BP 124/80
--- NOTE | 2024-11-06 08:12 | ED_ITS ---
HPI HPI - General Adult General Chief complaint: Extremity Problem, Nontraumatic Stated complaint: knee pain Time Seen by Provider: 11/06/24 07:42 Source: patient Mode of arrival: walk-in Limitations: no limitations History of Present Illness HPI narrative: Patient is a 49-year-old female who is presenting to the ER today with chief complaint of chronic left lower back pain, left buttock pain, left knee pain. Patient left work today and came into the ER secondary to having numbness and tingling to her left 4th and 5th toe. Patient was concerned about the numbness to her toe. Patient has been seeing her PCP, she has never been referred to chiropractor, physical therapy, orthopedic spine or neurosurgeon. Patient has been on a Medrol Dosepak as well with no relief. Patient is prescribed anti- inflammatories and muscle relaxer tizanidine with no relief. Patient is not doing any type of stretching consistently 3 times a day for weeks. She does do random stretching that helps minimal. No saddle anesthesia or cauda equina. No loss of urine or bowels in her pants. No other acute complaints. All systems are negative except as noted/marked. All systems reviewed and othe rwise negative. Nurses note and vital signs reviewed and patient is not hypoxic. General: The patient appears well and in no apparent distress. Patient is resting comfortably on cart. Patient is not toxic, lethargic, or listless Skin: Warm, dry, no pallor noted. There is no rash noted. No petechiae, purpura. Head: Normocephalic, atraumatic Eye: Normal conjunctiva, no drainage, EOMI. PERRL Ears, Nose, Mouth, and Throat: oral mucosa is moist. Nares patent. Mouth without vesicles. Cardiovascular: Regular Rate and Rhythm, no murmur, gallop, rub Respiratory: Patient is in no distress, no accessory muscle use, lungs are clear to auscultation, no wheezing, rales or rhonchi Back: Patient has moderate tenderness palpation to soft tissue to the left lower lumbar area, moderate tenderness palpation to left piriformis muscle. Positive straight leg raising test on the left. No motor dysfunction to the left lower extremity. Patient does have some mild numbness to left 4th and 5th toe. Patient does have full range of motion of the left knee with mild pain, mild crepitus. Otherwise the rest of her back is non-tender, no CVA tenderness bilaterally to percussion. No CT LS midline pain GI: Soft, obese, no tenderness to palpation, no masses appreciated. No rebound, guarding, or rigidity noted. No distention Musculoskeletal: Patient has full range of motion of all of the extremities, no motor, sensory, or focal neurological deficits Neurological: A&O x4, normal speech Psychiatric: Cooperative Related Data Home Medications ?Medication ?Instructions ?Recorded ?Confirmed lisinopril 10 mg tablet mg 11/06/24 metformin 500 mg tablet mg 11/06/24 rosuvastatin 5 mg tablet mg 11/06/24 Previous Rx's ?Medication ?Instructions ?Recorded gabapentin 100 mg capsule 100 mg PO Q8H PRN nerve pain 7 11/06/24 days #20 caps hydrocodone 5 mg-acetaminophen 325 1 tab PO Q4H PRN pa in #10 tabs 11/06/24 mg tablet Allergies Allergy/AdvReac Type Severity Reaction Status Date / Time Sulfa (Sulfonamide Allergy Nausea Verified 11/06/24 07:40 Antibiotics) Opioid HPI Opioid Management Most Recent Opioid Data: Last Pain Scale 7 Today, 07:35 PFSH PFSH Social History Little interest or pleasure in doing things: not at all Feeling down, depressed, or hopeless: not at all Exam Constitutional Vital Signs, click to edit/add: Last Vital Signs Temp 97.8 F 11/06/24 07:35 Pulse 80 11/06/24 07:35 Resp 18 11/06/24 07:35 BP 124/80 11/06/24 07:43 Pulse Ox 98 11/06/24 07:35 O2 Del Method Room Air 11/06/24 07:35 Course Vital Signs Vital signs: Vital Signs Temperature 97.8 F 11/06/24 07:35 Pulse Rate 80 11/06/24 07:35 Respiratory Rate 18 11/06/24 07:35 Pulse Oximetry 98 11/06/24 07:35 Oxygen Delivery Method Room Air 11/06/24 07:35 Temperature 97.8 F 11/06/24 07:35 Pulse Rate 80 11/06/24 07:35 Respiratory Rate 18 11/06/24 07:35 Blood Pressure 124/80 11/06/24 07:43 Pulse Oximetry 98 11/06/24 07:35 Oxygen Delivery Method Room Air 11/06/24 07:35 Medical Decision Making MDM Narrative Medical decision making narrative: Patient has chronic left lumbar radiculopathy and sciatica. Patient has been having pain since September. Patient has been given prescriptions for anti-inflammatories and muscle relaxer. Patient has not seen a spine surgeon or neurosurgeon yet. Patient left work today because she was having the numbness and tingling her left 4th and 5th toe. Education done at bedside on chronic left lumbar radiculopathy and piriformis syndrome. Patient was given short-term prescription of gabapentin and [place] to help with severe pain at home. Patient understands that we cannot treat chronic pain from the emergency room. Patient is followed back up with her PCP. No question at discharge. Discharge Plan Discharge Stand Alone Forms: Work/School Release Chief Complaint: Extremity Problem, Nontraumatic Clinical Impression: Chronic left-sided lumbar radiculopathy, Chronic left-sided low back pain with sciatica, Piriformis syndrome of left side Patient Disposition: Home, Self-Care Time of Disposition Decision: 08:02 Condition: Fair Prescriptions / Home Meds: New gabapentin 100 mg capsule 100 mg PO Q8H PRN (Reason: nerve pain) 7 Days Qty: 20 0RF hydrocodone-acetaminophen 5-325 mg tablet 1 tab PO Q4H PRN (Reason: pain) Qty: 10 0RF No Action metformin 500 mg tablet lisinopril 10 mg tablet rosuvastatin 5 mg tablet Print Language: Mongolian Instructions: Sciatica (ED), Pain Management (ED), Chronic Pain (ED), Lumbar Radiculopathy (ED), Piriformis Syndrome (ED), Lower Back Exercises (ED) Additional Instructions: Use ice 20 minutes on, 20 minutes off, do not use heat. Your PCP needs to refer you to orthopedic spine surgeon or neurosurgeon for definitive and future treatment. You may also call Dr. Saint Alvarez for follow-up as well for orthopedic spine surgery. We are not allowed to treat long-term pain management from the emergency room, you have been given short prescriptions to help manage your pain at home if the pain is severe. Alternate Tylenol and either Motrin, Advil, or ibuprofen every 4 hours to help with pain. If you are having severe pain, substitute a [place] tablet instead of Tylenol. Do not take Tylenol and [place] at the same time, you may actually take too much Tylenol at 1 setting or in 1 day. Maximum Tylenol dose of Tylenol is 3000 mg a day. Maximum dose of either Motrin, Advil, or ibuprofen is 2400 mg a day. Referrals: [facility] [Primary Care Provider, Unknown] - 1 week
== END 2024-11-06 08:18 | disposition home or self-care (01) ==
PROVIDERS: Emergency Provider Emergency Medicine
DX: M51.16 Intervertebral disc disorders with radiculopathy, lumbar region (principal); G89.29 Other chronic pain; G57.02 Lesion of sciatic nerve, left lower limb
CPT/HCPCS: 99283

== ENCOUNTER 2025-06-07 21:18 | Emergency (ER) | payer OTHER, SELFPAY ==
--- OUTSIDE RECORDS SUMMARY | 2024-09-18 07:15 | XMS_ITS ---
Author Organization [facility] vices Address [address] [place], [place] [id number] Care Team Providers Care Manager Concrete Name Role Phone Olga Ackerman Primary Care Provider [phone] Angle Chun [phone] REASON FOR VISIT sciatica issues Social History Sex Assigned At : Social History Observation Description Sex Assigned At Female Encounters Encounter Location Date Provider Diagnosis [address] [phone] 09/18 Angle Piper Plan Of Treatment Next Appt Details Provider Name:Olga Ackerman, 06/10/2025 03:00:00 PM, [address] [place], [id number], Progress Notes * Maxine CLARK ADOB:1974 (50 yo F)Acc No.[id number]:09/18/2024 Medical Note Patient: Maxine Burrows :?Angle PiperDOB:1975???Age:49 Y???Sex:Female Date:09/18/2024Phone:[phone]:[address] [place], [place]-[id number] Pcp:Olga Ackerman Subjective: * Chief Complaints: * S ciatica issues * Electronic signature of SUSANA Hagan on 06/07/2025 at 09:53 PM ESTSign off status: Pending * Provider: Yamilka Piper Date: 0 09/18/2024 Generated for Printing/Faxing/eTransmitting on:?06/07/2025 09:53 PM EST
--- OUTSIDE RECORDS SUMMARY | 2025-02-01 08:45 | XMS_ITS ---
Author Organization [facility] vices Address [address] [place] [place], [place] [id number] Care Team Providers Care [place] Name Role Phone Olga Ackerman Primary Care Provider Soledad Mary [phone] REASON FOR VISIT Numbness fingers Social History Sex Assigned At : Social History Observation Description Sex Assigned At Female Encounters Encounter Location Date Provider Diagnosis [address] [id number] 02/01/2025 Soledad Mary Plan Of Treatment Next Appt Details Provider Name:Olga Ackerman, 06/10/2025 03:00:00 PM, [address] [place], [id number], Progress Notes * Maxine CLARK ADOB:1974 (50 yo F)Acc No.[id number]:02/01/2025 Medical Note Patient: Maxine Burrows :?Soledad Mary APRN, FNP-CDOB:1975???Age: 49 Y???Sex:FemaleDate:02/01/2025Phone:[phone]:[address] [place] [id number]:Olga Ackerman Subjective: * Chief Complaints: * N umbness fingers * Electronic signature of TANIA Puentes on 06/07/2025 at 09:53 PM EST Sign off status: Pending * Provider: Courtney Mary APRN, FNP-C Date: 0 02/01/2025 Generated for Printing/Faxing/eTransmitting on:?06/07/2025 09:53 PM EST
--- OUTSIDE RECORDS SUMMARY | 2025-02-10 09:30 | XMS_ITS ---
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??Age:49 Y???Sex: FemaleDate:02/10/2025Phone:[phone]:[address] [place] [id number] Subjective: * Chief Complaints: * N umbness in right leg Billing Information: * Procedure Codes: * Electronic signature of Olga Ackerman MD on 06/07/2025 at 09:53 PM ESTSign off status: Pending * Provider: Asya Ackerman MD Date: 0 02/10/2025 Generated for Printing/Faxing/eTransmitting on:?06/07/2025 09:53 PM EST
--- OUTSIDE RECORDS SUMMARY | 2025-03-25 10:30 | XMS_ITS ---
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 Role Phone Olga Ackerman Primary Care Provider REASON FOR VISIT fatigue Social History Sex Assigned At : Social History Observation Description Sex Assigned At Female Encounters Encounter Location Date Provider Diagnosis Main [address] [place], [place] [phone] 03/25/2025 Olga Ackerman Plan Of Treatment Next Appt Details Provider Name:Olga Ackerman, 06/10/2025 03:00:00 PM, [address] [place], [place], [phone], Progress Notes * Maxine CLARK ADOB:1974 (50 yo F)Acc No.[id number]:03/25/2025 Medical Note Patient: Maxine Burrows :?Olga Ackerman, MDDOB:1975???Age:49 Y???Sex: FemaleDate:03/25/2025Phone:[phone]:[address] [place], [phone] Subjective: * Chief Complaints: * F atigue Billing Information: * Procedure Codes: * Electronic signature of Olga Ackerman MD on 06/07/2025 at 09:53 PM ESTSign off status: Pending * Provider: Asya Ackerman MD Date: 1 Generated for Printing/Faxing/eTransmitting on:?06/07/2025 09:53 PM EST
--- OUTSIDE RECORDS SUMMARY | 2025-05-26 11:15 | XMS_ITS ---
Author Organization [facility] vices Address [address] [place], [place] [phone] Care Team Providers Care Ophthalmic Tech Name Role Phone Olga Ackerman Primary Care Provider [phone] Allergies Allergen (clinical drug ingredient) Drug/Non Drug Allergy documented on EMR Reaction Allergy Type Onset Date Status Substance with sulfonamide s tructure and antibacterial mechanism of action (substance) Sulfa Antibiotics stomach upset Drug Allergy Active Reason For Referral Reason tender on both but m ore on left Diagnosis 1 Callus of foot (L84) Referral Organization Main Referring Provider First Name Olga Referring Provider Last Name Tyron Referring Provider Speciality Internal M edicine Referred Provider Kindra Cerna Referred Provider Specialty Podiatry General Notes Louis Lawrence 06/07 08:16:24 AM EST > referral fax sent Referral Priority Routine REASON FOR VISIT foot pain Medications Medication SIG (Take, Route, Frequency, Duration) Notes Start Date End Date Status metFORMIN HCl 500 MG Tablet 1 tablet wit h a meal Orally twice a day; Duration: 30 days 5ActiveLisinopril 10 MG Tablet1 tablet Orally Once a day; Duration: 30 days5ActiveCyclobenzaprine HCl 10 MG Tablet 1 tablet Orally three times a day; Duration: 10 days As needed 10/23/2024Not-Taking/PRNSemaglutide(0.25 or 0.5MG/DOS) 2 MG/3ML Solution Pen-injectoras directed SubcutaneousActiveRosuvastatin Calcium 5 MG Tablet1 tablet Orally Once a day; Duration: 30 days5Active Social History Sex Assigned At : Social History Observation Description Sex Assigned At Female Vital Signs Temperature 97 degrees Fahrenheit 05/26/2025 Blood pressure systolic 141 mm Hg 05/26/20 25 Blood pressure diastolic 89 mm Hg 025 Heart Rate 73 /min 05/26/2025 Respiratory Rate 18 /min 05/26/2025 Height 61.50 in 05/26/2025 Weight 223.4 lbs 05/26/2025 BMI 41.52 kg/m2 05/26/2025 Oximetry 99 % 05/26/2025 Height-cm 156.21 cm 05/26/2025 Weight-kg 101.33 kg 05/26/2025 Araceli Lema 05/26/2025 0 4:10:09 PM EST > Encounters Encounter Location Date Provider Diagnosis Main [address] , [place] [id number] 05/26/2025 Olga Ackerman Type 2 diabetes reyna itus without complication, without long-term current use of insulin E11.9 ; Callus of foot L84 and Hyperlipidemia E78.5 Assessments Encounter Date Diagnosis (ICD Code) Assessment Notes Treatment Notes Treatment Clinical Notes Section Notes 05/26/2025 Type 2 diabetes reyna itus without complication, without long-term current use of insulin (ICD-10 - E11.9) 05/26/2025allus of foot (ICD-10 - L84)Tender to touch will refer to podiatry for further uuyrmxuqnf04/03/2025Hyperlipidemia (ICD-10 - E78.5) Plan Of Treatment Treatment Notes Assessment Notes 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 will refer to podiatry for further evaluation Pending Test Test Name Order Date LIPID PANEL WITH REFLEX TO DIRECT LDL MICROALBUMIN RANDOM SPEC 05/26/2025 COMPREHENSIVE METABOLIC PANEL WITH GFR 1 07/27/2024 HEMOGLOBIN A1C 05/26/2025 Referrals Referral Date Details 05/26/2025 05/26/2025, tender o n both but more on left, Kindra Cerna Next Appt Details Follow Up: 1-2 Week, Reason: DM, htn and HLD 30 min Provider Name:Olga Ackerman, 06/10/2025 03:00:00 PM, [address] [place], [place], [phone], History and Physical Notes * HPI (History of Present Illness) CategorySub-CategoryDetailNotesCategory NotesInterim History She has foot pain, primarily on the left foot but it is starting also on the right foot. Symptoms started around 4 months ago. No known injury. She denies being barefoot. Pain is getting worse now, while driving she get really bad pain like someone stabbing her. Her pain is primarily on the lateral aspect of her foot near her little toes. Reports pain more worse when she is resting and when she stands on it its not as bad Examination CategorySub-CategoryDetailNotesCategory NotesGeneral Examination General appearance: alert, pleasant, well-nourished and in no acute distress. Head: normocephalic, atraumatic. Eyes: pupils equal, round, reactive to light and accommodation. Skin: skin is warm and dry, with no rashes, good skin turgor and normal hair distribution. Heart: regular rate and rhythm without murmurs, gallops, clicks or rubs. Lungs: clear to auscultation bilaterally, with good air movement and no rales, rhonchi or wheezes. Left foot: callus on pressure bearing areas, tender on medial below little toe Psych: alert and oriented x 3 , cooperative with exam , normal affect / mood , speech is clear and coherent. CQM ExceptionsCurrently taking Aspirin:Aspirin Use:: No Consultation Request Notes Referral Date Referring Provider Referred Provider Not es 05/26/2025 Olga Ackerman Jessica tender on b oth but more on left Progress Notes * Maxine CLARK ADOB:1974 (49 yo F)Acc No.[id number]:05/26/2025 Medical Note Patient: Rodney Burrowslinorm Valdez :?Olga Ackerman MDDOB:1975???Age:49 Y???Sex: FemaleDate:05/26/2025Phone:[phone]:[address] [place] [phone] In:04:03 PM EST Subjective: * Chief Complaints: * F oot pain * HPI: ???Interim History:?She has foot pain, primarily on the left foot but it is starting also on the right foot. Symptoms started around 4 months ago. No known injury. She denies being barefoot. Pain is getting worse now, while driving she get really bad pain like someone stabbing her.? Her pain is primarily on the lateral aspect of her foot near her little toes. Reports pain more worse when she is resting and when she stands on it its not as bad. * ROS: ???Negative except mentioned above in the HPI. * Medical History: AA (alopecia areata) Back pain with radiculopathy Genital herpes Hypertension Iliotibial band syndrome, left Depression Medical History Verified? * Surgical History: cyst removed from back of head ? D&C ? Gallbladder Surgery - Laparoscopic 2011? Surgical History verified.? * Hospitalization/Major Diagno stic Procedure: see surgical hx ? Hospitalization Verified.? * Family History: F ather: , diagnosed with Diabetes, Hypertension, Cancer. M other: alive, diagnosed with Hypertension. P aternal Grand Father: . P aternal Grand Mother: . Maternal Grand Father: . M aternal Grand Mother: . S ister: alive, 3 total depression borderline asthma and diabetic. F amily History Verified.. * Social History: Social History Verified. No Social History documented. * Medications: T akingSemaglutide(0.25 or 0.5MG/DOS) 2 MG/3ML Solution Pen-injector as directed Subcutaneous Rosuvastatin Calcium 5 MG Tablet 1 tablet Orally Once a day metFORMIN HCl 500 MG Tablet 1 tablet with a meal Orally twice a day Lisinopril 10 MG Tablet 1 tablet Orally Once a day Taking Semaglutide(0.25 or 0.5MG/DOS) 2 MG/3ML Solution Pen-injector as directed Subcutaneous Taking Rosuvastatin Calcium 5 MG Tablet 1 tablet Orally Once a day Taking metFORMIN HCl 500 MG Tablet 1 tablet with a meal Orally twice a day Taking Lisinopril 10 MG Tablet 1 tablet Orally Once a day Not-Taking/PRNCyclobenzaprine HCl 10 MG Tablet 1 tablet Orally three times a day As neededMedication List reviewed and reconciled with the patientNot-Taking/PRN Cyclobenzaprine HCl 10 MG Tablet 1 tablet Orally three times a day As neededMedication List reviewed and reconciled with the patient * Allergies: S ulfa Antibiotics: stomach upset - AllergyyesAllergies Verified. Objective: * Vitals: T emp:97F, Wt:223.4lbs, Ht: 61.50 in, BMI:41.52Index, BP: 143/96 mm Hg,141/89mm Hg, HR:73/min, RR:18/min, Pain scale:21-10, Oxygen sat %:99%, Wt-k.33 kg, Ht- cm: 156.21 cm, Body Surface Area: 2.09. Araceli Lema 05/26/2025 04:10:09 PM EST >. * Examination: ???General Examination: ???General appearance: alert, pleasant, well-nourished and in no acute distress. Head: normocephalic, atraumatic. Eyes: pupils equal, round, reactive to light and accommodation. Skin: skin is warm and dry, with no rashes, good skin turgor and normal hair distribution. Heart: regular rate and rhythm without murmurs, gallops, clicks or rubs. Lungs: clear to auscultation bilaterally, with good air movement and no rales, rhonchi or wheezes. Left foot: callus on pressure bearing areas, tender on medial below little toe Psych: alert and oriented x 3 , cooperative with exam , normal affect / mood , speech is clear and coherent. ???CQM Exceptions: ?Currently taking Aspirin:? Aspirin Use:?No??? Assessment: * Assessment: 1.?Callus of foot - L84 (Primary)???2.?Type 2 diabetes mellitus without com plication, without long-term current use of insulin - E11.9???3.?Hyperlipidemia- E78.5??? Plan: * Treatment: Notes: Tender to touch will refer to podiatry for further evaluation?&# 160;? Referral To:Kindra Cerna??Podiatry ?Reason:tender on both but more on left 2.?Type 2 diabetes mellitus without complication, without long-term current use of insulin?LAB: MICROALBUMIN RANDOM SPEC ?LAB: COMPREHENSIVE METABOLIC PANEL WITH GFR ?LAB: HEMOGLOBIN A1C3.?Hyperlipidemia?LAB: LIPID PANEL WITH REFLEX TO DIRECT LDL * Procedure Codes: 3 077F HTN SYST BP >= 8893054V HTN DIAST BP = 80-89 * Follow Up: 1 -2 Week (Reason: DM, htn and HLD 30 min) Billing Information: * Visit Code: 89672 Office Visit Est 20-29 minutes. * Procedure Codes: 3077F HTN SYST BP >= 140. 3079F HTN DIAST BP = 80-89. * ign off status: Completed true * Provider: Asya Ackerman MD Date: 1 07/27/2024 Generated for Printing/Faxing/eTransmitting on:?06/07/2025 09:53 PM EST
[2025-06-07 21:23] VITALS: BP 168/111; PULSE 83; TEMP 36.4; O2SAT 100; BMI 38.4
[2025-06-07 21:33] VITALS: O2SAT 100
[2025-06-07] MEDS: KETOROLAC TROMETHAMINE 10 MG TABLET 20 MG PO (21:52)
[2025-06-07] MEDS: METHOCARBAMOL 500 MG TABLET PO (21:52)
[2025-06-07] MEDS: PREDNISONE 20 MG TABLET 50 MG PO (21:53)
--- OUTSIDE RECORDS SUMMARY | 2025-06-07 21:53 | XMS_ITS | Clinical Summary ---
Author Organization [facility] Healthcare Address [address] [place] [address] Care Team Providers Care Director Of Midwifery/Staff Midwife Name Role Phone Unavailable Primary Care Provider Unavailabl e Social History Tobacco UseTypesPacks/DayYears UsedDateSmoking Tobacco: Never Assessed CommentsUnknownSex and Gender InformationValueDate RecordedSex Assigned at Not on fileLegal PxvLskjvb83/15/2023 6:40 PM EDTGender IdentityNot on fileSexual OrientationNot on file Plan of Treatment DateTypeDepartmentCare Team (Latest Contact Info)Wjfwhyswjgg36/06/2026 3:30 PM ESTOffice Visit [facility] [address] [place] [phone] Kindra Cerna, DPM [address] [place] [address] Insurance
--- OUTSIDE RECORDS SUMMARY | 2025-06-07 21:53 | XMS_ITS | Encounter Summary ---
Author Organization [facility] [employer] [facility] tem Address [id number] [place] [address] Care Team Providers Care Installer Technician Name Role Phone Services, [facility] Primary Care Provider Encounter Details DateTypeDepartmentCare Team (Latest Contact Info)Pfmennpwlzg02/02/2025Results Follow-Up [facility]ne[facility] [address] [facility] [place] [phone] Lena Moe, SPECIAL EDUCATION EDUCATIONAL ASSISTANT-ORE CRUSHING DUST COLLECTOR [address] [place], [place] [phone] Ultrasound pelvic with transvaginal Social History Tobacco UseTypesPacks/DayYears UsedDateSmoking Tobacco: NeverSmokeless Tobacco: NeverAlcohol UseStandard Drinks/WeekCommentsNo0 (1 standard drink = 0.6 oz pure alcohol)ChildcareAnswerDate XxlzdzmeLycllgmmpAsazcop79/12/2019EmploymentAnswer Date YoewqncxBjxdbzeoimHdpcnjb55/12/2019Hunger ScreeningAnswerDate Recorded Within the past 12 months we worried whether our food would run out before we got money to buy more.Never True03/11/2025Within the past 12 months the food we bought just didn't last and we didn't have money to get more.Never True 03/11/2025Purpose - LifeAnswerDate RecordedPurpose and direction in lifeUnknown 1CommentsNoSex and Gender InformationValueDate RecordedSex Assigned at BirthNot on fileLegal TjhSfvxys49/06/2015 11:45 AM EDTGender IdentityNot on fileSexual OrientationNot on filedocumented as of this encounter Plan of Treatment Not on file documented as of this encounter Visit Diagnoses Not on filedocumented in this encounter Additional Health Concerns AssessmentNoted TimeA Body Mass Index follow-up plan has been documented for the wnludmu4601/10/2017 5:05 PM EDTdocumented as of this encounter Care Teams Team MemberRelationshipSpecialtyStart DateEnd Date Services, [facility] [address] [place], [place] PCP - GeneralFamily Medicine10/23/23documented as of this encounter
--- OUTSIDE RECORDS SUMMARY | 2025-06-07 21:54 | XMS_ITS | Clinical Summary ---
Author Organization [facility] Address [id number] [place] [address] Care Team Providers Care Flush Tester Name Role Phone Services, [facility] Primary Care Provider Allergies Active AllergyReactionsCriticalityNoted DateCommentsSulfa (Sulfonamide Antibiotics)GI Disturbance,Tdyfwb0812/04/2016 Medications MedicationSigDispense QuantityRefillsLast FilledStart DateEnd DateStatus rosuvastatin (CRESTOR) 5 mg tablet Take 1 tablet (5 mg total) by mouth in the morning.04/02/2023ctive lisinopriL (PRINIVIL,ZESTRIL) 2.5 mg tablet Take 1 tablet (2.5 mg total) by mouth in the morning.04/02/2023ctive metFORMIN XR (GLUCOPHAGE XR) 500 mg 24 hr tablet Take 1 tablet (500 mg total) by mouth daily with breakfast.04/26/2023ctive acetaminophen (TYLENOL) 325 mg tablet Take 2 tablets (650 mg total) by mouth every 6 (six) hours as needed.Active semaglutide 0.25 mg or 0.5 mg(2 mg/1.5 mL) pen injector Inject 0.25 mg under the skin every 7 days.Active Active Problems No known active problems Encounters DateTypeDepartmentCare KfbyFbqwsbaabwl30/02/2025Results Follow-Up [facility] Obstetrics/Gynecology [address] [place] [address] Lena Moe, CARDIAC MONITOR-STITCH BONDING MACHINE TENDER Ultrasound pelvic with inyeatytqubu73/01/2025 1:32 PM EDT - 03/24/2025 11:59 PM EDTHospital Encounter [facility] [address] [place] [id number] Lena Moe, CARDIAC MONITOR-STITCH BONDING MACHINE TENDER Abnormal uterine bleeding (AUB) Discharge Disposition: Home03/24/20251190Nmpnhq86/18/2025 2:30 PM EDTOffice Visit [facility] [address] [address] Lena Moe, CARDIAC MONITOR-STITCH BONDING MACHINE TENDER Abnormal uterine bleeding (AUB) (Primary Dx)03/11/2025Travelfrom Last 3 Months Immunizations ImmunizationAdministration DatesNext TteEgdk5107/12/2022,01/02/2010 Family History Medical HistoryRelationNameCommentsCancerFatherlymphomaDiabetesFather HypertensionFatherHypertensionMotherHypertensionSisterBreast cancerNeg HxColon cancerNeg HxOvarian cancerNeg HxProstate cancerNeg HxUterine cancerNeg Hx RelationNameStatusCommentsFatherMotherSister Social History Tobacco UseTypesPacks/DayYears UsedDateSmoking Tobacco: NeverSmokeless Tobacco: NeverAlcohol UseStandard Drinks/WeekCommentsNo0 (1 standard drink = 0.6 oz pure alcohol)ChildcareAnswerDate FtgceovrZoexttuicTirancw90/12/2019EmploymentAnswer Date LzklbxxrDqdxxxhinhDrwxqab09/12/2019Hunger ScreeningAnswerDate Recorded Within the past 12 months we worried whether our food would run out before we got money to buy more.Never True03/11/2025Within the past 12 months the food we bought just didn't last and we didn't have money to get more.Never True 03/11/2025Purpose - LifeAnswerDate RecordedPurpose and direction in lifeUnknown 1CommentsNoSex and Gender InformationValueDate RecordedSex Assigned at BirthNot on fileLegal JknFzvjhd03/06/2015 11:45 AM EDTGender IdentityNot on fileSexual OrientationNot on file Last Filed Vital Signs Vital SignReadingTime TakenCommentsBlood Gbciqlsg151/7809 2:23 PM EDT Bqlep76408 8:45 AM SOIXouvpidgnlk73.6 ??C (97.8 ??F)10/19/2024 7:43 AM EDTRespiratory Nqke560310/19/2024 7:43 AM EDTOxygen Haqfdkztay969%10/19/2024 7:43 AM EDTInhaled Oxygen Concentration--Dcjohb549.4 kg (230 lb 3.2 oz)03/11/2025 2:23 PM KKGGljrdh736.5 cm (5' 2 )03/11/2025 2:23 PM EDTBody Mass Index42.1 03/11/2025 2:23 PM EDT Plan of Treatment Health MaintenanceDue DateLast DoneCommentsDepression Jstieszmu84/05/1989Adult BMI Follow Up Plan1995COVID-19 Vaccine ( season)2025 12/26/2020Influenza Yzfjqhy9702/22/2025Pap Smear/, 11/06/2022 Adult BMI Mkacuxxik84Tobacco Xkvhsjfza30 DTaP,Tdap and Td Vaccines (3 - Td or Tdap), 01/02/2010 Medical Devices Not on file Procedures Procedure NamePriorityDate/TimeAssociated DiagnosisCommentsUS PELVIC WITH KBWTTGDZKMZYPcztiev21/01/2025 2:37 PM EDT Abnormal uterine bleeding (AUB) HCG-BETA, PCADZXhlxitr72/01/2025 2:07 PM EDT Abnormal uterine bleeding (AUB) FOLLICLE STIMULATING MXRHWKZTmwxdqd86/01/2025 2:07 PM EDT Abnormal uterine bleeding (AUB) UFVQTETVYSlzagci17/01/2025 2:07 PM EDT Abnormal uterine bleeding (AUB) THYROID PROFILE INCLUDES TSH TG0Uiainwz95/01/2025 2:07 PM EDT Abnormal uterine bleeding (AUB) HIGH RISK HPV W/WZDIWczuygu03/16/2023 6:39 AM EDT from Last 3 Months or Most Recently Relevant to Health Maintenance Results * Ultrasound pelvic with transvaginal (03/24/2025 2:37 PM EDT)Anatomical Region LateralityModalityBody, PelvisUltrasoundSpecimen (Source)Anatomical Location / LateralityCollection Method / VolumeCollection TimeReceived Time03/25/2025 6:25 AM EDT Narrative 03/25/2025 6:26 AM EDT Clinical history: Dysfunctional uterine bleeding Findings:Transabdominal ultrasound was performed of the pelvis.. ??Endovaginal sonography was also performed to better evaluate the pelvic and adnexal structures.. ?? Uterus measures 8.8 cm in length and 4.2 cm in AP diameter. Endometrium measures 7.3 mm. Myometriumunremarkable. Nabothian cysts present. Left ovary 3.1 x 1.8 x 2.1 cm. Nonvisualization right ovary likely due to overlying bowel gas. No free fluid. Impression: Unremarkable ultrasound of uterus and left ovary. Finalized by Luis Antonio Glynn MD on 03/25/2025 6:26 AM Procedure Note Luis Antonio Glynn MD - 03/25/2025 Clinical history: Dysfunctional uterine bleeding Findings:Transabdominal ultrasound was performed of the pelvis..Endovaginal sonography was also performed to better evaluate the pelvicand adnexal structures.. Uterus measures 8.8 cm in length and 4.2 cm in AP diameter. Endometriummeasures 7.3 mm. Myometrium unremarkable. Nabothian cysts present. Left ovary 3.1 x 1.8 x 2.1 cm. Nonvisualization right ovary likely due to overlying bowel gas. No free fluid. Impression: Unremarkable ultrasound of uterus and left ovary. Finalized by Luis Antonio Glynn MD on 03/25/2025 6:26 AM Authorizing ProviderResult TypeResult StatusLisa Nusrat Moe CARDIAC MONITOR-CNPIMG US ORDERABLESFinal Result * Thyroid profile includes TSH FT4 (03/24/2025 2:07 PM EDT)ComponentValueRef RangeTest MethodAnalysis TimePerformed AtPathologist SignatureFREE T40.860.61 - 1.60 ng/dL03/24/2025 7:03 PM [facility]ORATORYTSH3.04 0.49 - 4.67 uIU/mL03/24/2025 7:03 PM [facility] Specimen (Source)Anatomical Location / LateralityCollection Method / Volume Collection TimeReceived TimeBloodVenous blood / UnknownVenipuncture / Unknown 03/24/2025 2:07 PM EDT1 2:07 PM EDT Narrative Authorizing ProviderResult TypeResult StatusLisa M Krotzer CARDIAC MONITOR-CNPLAB BLOOD ORDERABLESFinal ResultPerforming OrganizationAddressty/State/ZIP CodePhone Number [facility] [address] [place] [address], * Prolactin (03/24/2025 2:07 PM EDT)ComponentValueRef RangeTest MethodAnalysis TimePerformed AtPathologist WmnyyaoliILQISMNLP97.43.3 - 26.7 ng/mL03/24/2025 7:07 PM [facility] LABORATORYSpecimen (Source)Anatomical Location / LateralityCollection Method / VolumeCollection TimeReceived Time BloodVenous blood / UnknownVenipuncture / Qbrhzom8603/24/2025 2:07 PM EDT 03/24/2025 2:07 PM EDT Narrative Authorizing ProviderResult TypeResult StatusLisa Nusrat Krotzer CARDIAC MONITOR-CNPLAB BLOOD ORDERABLESFinal ResultPerforming OrganizationAddressty/State/ZIP CodePhone Number [facility] [address] [place] [address], [place] [phone] * hCG, quantitative, (03/24/2025 2:07 PM EDT)ComponentValueRef Range Test MethodAnalysis TimePerformed AtPathologist SignatureSERUM B HCG,3RD I.S. <5mIU/mL03/24/2025 6:51 PM [facility]ATORYSpecimen (Source)Anatomical Location / LateralityCollection Method / VolumeCollection TimeReceived TimeBloodVenous blood / UnknownVenipuncture / Jawxhhk9603/24/2025 2:07 PM EDT1 2:07 PM EDT Narrative [facility] - 03/24/2025 6:51 PM EDT WEEKS (SINCE LMP) MIU/mL 3 WEEKS ?5 - 50 4 WEEKS ?5 - 426 5 WEEKS ?18 - 7,340 6 WEEKS ?1,080 - 56,500 7-8 WEEKS ?7,650 - 229,000 9-12 WEEKS ? 25,700 - 288,000 13-16 WEEKS ?13,300 - 254,000 17-24 WEEKS ?4,060 - 165,400 25-40 WEEKS ?3,640 - 117,000 MALES AND NON- FEMALES - <5 MIU/mL This test has been FDA approved for use in only. ??Elevated levels are not necessarily diagnostic for trophoblastic or nontrophoblastic neoplasms. Authorizing ProviderResult TypeResult StatusLena Moe CARDIAC MONITOR-CNPLAB BLOOD ORDERABLESFinal ResultPerforming OrganizationAddressCity/State/ZIP CodePhone Number [facility] [address] [place] [address], * Follicle stimulating hormone (03/24/2025 2:07 PM EDT)ComponentValueRef Range Test MethodAnalysis TimePerformed AtPathologist SignatureFOLLICLE STIM HORMONE 11.8mIU/mL03/24/2025 7:29 PM [facility] LABORATORYSpecimen (Source)Anatomical Location / LateralityCollection Method / VolumeCollection TimeReceived TimeBloodVenous blood / UnknownVenipuncture / Tlzkqls8403/24/2025 2:07 PM EDT1 2:07 PM EDT Narrative [facility] - 03/24/2025 7:29 PM EDT NORMAL FEMALE: Luteal ??1.8-5.1 ?mIU/mL Follicular ??3.8-8.8 ?mIU/mL Mid Cycle ??4.5-22.5 ?? mIU/mL Post Olivia ??16.7-113.6 ??mIU/mL Authorizing ProviderResult TypeResult StatusLena Moe CARDIAC MONITOR-J-KanLAB BLOOD ORDERABLESFinal ResultPerforming OrganizationAddressCity/State/ZIP CodePhone Number [facility] [address] [place] [phone], * High risk HPV w/janneth (11/06/2022 6:39 AM EDT)ComponentValueRef RangeTest MethodAnalysis TimePerformed AtPathologist SignatureHpv specimen typeThinPrep 11/07/2022 6:40 AM [facility]ITALHpv 16NegativeNegative^Negative 11/09/2022 2:29 PM [facility] LABHpv 18Negative Negative^Tvakfskf14/19/2023 2:29 PM [facility] LABOther high risk hpvNegativeNegative^Bvfvmozz11/19/2023 2:29 PM [facility] LABComment: HPV types 31,33,35,39,45,52,56,58,59,66 and 68 DNA were undetectable. Specimen (Source)Anatomical Location / LateralityCollection Method / Volume Collection TimeReceived HmyeUGYXM85/16/2023 6:39 AM EDT11/07/2022 6:40 AM EDT Narrative Authorizing ProviderResult TypeResult StatusLeona Mak CARDIAC MONITOR-CNPLAB BLOOD ORDERABLESFinal ResultPerforming OrganizationAddressCity/State/ZIP CodePhone Number [facility] [address] [facility] [place] [address] [facility] [address] [place] [address] from Last 3 Months or Most Recently Relevant to [place] [address] Care Teams Team MemberRelationshipSpecialtyStart DateEnd Date Services, [facility] [address] [place], [place] PCP - GeneralFamily Medicine10/23/23
--- NOTE | 2025-06-07 22:01 | ED_ITS ---
HPI HPI - General Adult General Chief complaint: Back Pain/Injury Stated complaint: BACK PAIN LEFT LOWER Time Seen by Provider: 06/07/25 21:27 Source: patient Mode of arrival: walk-in Limitations: no limitations History of Present Illness HPI narrative: Patient is a 50-year-old female with a PMH of left-sided sciatica that presents with acute on chronic left-sided sciatica pain. She denies any recent trauma. She denies any bowel or bladder incontinence/retention, saddle anesthesia, leg weakness or numbness. She reports that her pain travels down her left buttock, posterior thigh, and ends before it crosses the knee. She does have right sided lumbar pain but this does not radiate into the buttock or into the leg. She was seeing her PCP for this who had ordered physical therapy, but they ended up leaving the practice and the orders fell through. Related Data Home Medications ?Medication ?Instructions ?Recorded ?Confirmed lisinopril 10 mg tablet 10 mg PO DAILY 11/06/2405/24 metformin 500 mg tablet 500 mg PO BID 11/06/2406/07 rosuvastatin 5 mg tablet 5 mg PO DAILY 11/06/2406/07 Previous Rx's ?Medication ?Instructions ?Recorded ibuprofen 800 mg tablet 800 mg PO Q6H PRN pain #20 t abs 06/07/25 methocarbamol 500 mg tablet 500 mg PO BID PRN muscle p ain #20 06/07/25 tabs prednisone 50 mg tablet 50 mg PO DAILY 5 days #5 tab s 06/07/25 Allergies Allergy/AdvReac Type Severity Reaction Status Date / Time Sulfa (Sulfonamide Allergy Nausea Verified 06/07/25 21:27 Antibiotics) Opioid HPI Opioid Management Most Recent Opioid Data: Last Pain Scale 7 06/07/25, 21:32 Review of Systems ROS Status of ROS 10 or more systems reviewed and unremark able except as noted in history and below PFSH PFSH Social History Little interest or pleasure in doing things: not at all Feeling down, depressed, or hopeless: not at all Exam Narrative Exam Narrative: General: No distress, age-appropriate Skin: Warm, dry, no pallor. No rash. Head: Normocephalic, atraumatic. Neck: Supple, non-tender. Eye: Pupils are equal, round and EOMI. No scleral icterus. Ears, Nose, Mouth, and Throat: No nasal mucosal hypertrophy. Oral mucosa is moist, no posterior oropharynx erythema, uvula is mid-line Cardiovascular: Regular Rate and Rhythm without murmur, gallop or rub. Back: No midline thoracic tenderness, midline lumbar tenderness with palpation. Bilateral SI joints tender with palpation. Musculoskeletal: Full ROM of all extremities, no calf or popliteal tenderness. 5/5 strength bilateral lower extremities. Sensation intact distally with light touch. Neurological: A&O x4. No cranial nerve dysfunction observed. No truncal ataxia. Moves all extremities. Sensation intact. Psychiatric: Cooperative and interactive. Normal mood and affect. Constitutional Vital Signs, click to edit/add: Last Vital Signs Temp 97.6 F 06/07/25 21:23 Pulse 83 06/07/25 21:23 Resp 17 06/07/25 21:23 BP 168/111 H 06/07/25 21:23 Pulse Ox 100 06/07/25 21:33 O2 Del Method Room Air 06/07/25 21:33 Documenting provider has reviewed patient's vital signs: yes Course Vital Signs Vital signs: Vital Signs Temperature 97.6 F 06/07/25 21:23 Pulse Rate 83 06/07/25 21:23 Respiratory Rate 17 06/07/25 21:23 Blood Pressure 168/111 H 06/07/25 21:23 Pulse Oximetry 100 06/07/25 21:23 Oxygen Delivery Method Room Air 06/07/25 21:23 Temperature 97.6 F 06/07/25 21:23 Pulse Rate 83 06/07/25 21:23 Respiratory Rate 17 06/07/25 21:23 Blood Pressure 168/111 H 06/07/25 21:23 Pulse Oximetry 100 06/07/25 21:33 Oxygen Delivery Method Room Air 06/07/25 21:33 Medical Decision Making MDM Narrative Medical decision making narrative: The patient is a 50-year-old female with a history of chronic left-sided sciatica who presents with acute exacerbation of her usual symptoms. She reports no red-flag symptoms such as bowel or bladder incontinence, saddle anesthesia, leg weakness, or numbness. Pain is localized to the left buttock and posterior thigh, not extending below the knee, consistent with her chronic radiculopathy pattern. Physical exam did not indicate any acute neurological deficits. Cauda equina unlikely. No imaging was indicated at this time given the absence of red-flag features and a known history of chronic sciatica. The patient was treated in the ED with oral Robaxin, Toradol, prednisone, and [place], resulting in mild improvement of her pain. She declined IM or IV medications. Pain was adequately controlled prior to discharge. The plan includes a 5-day prednisone burst, as- needed Robaxin and ibuprofen, with strict return precautions for red-flag symptoms. We did discuss seeing a painter railroad car and the [place] pain management clinic was recommended. This information placed in discharge instructions. Patient's pain controlled in ER and she was discharged in stable condition with plan for follow-up with pain management for further evaluation and management. Differential Diagnosis Differential Diagnosis: Acute on chronic lumbar radiculopathy, disc herniation, disc degeneration Discharge Plan Discharge Chief Complaint: Back Pain/Injury Clinical Impression: Lumbar radiculopathy Patient Disposition: Home, Self-Care Time of Disposition Decision: 22:11 Condition: Good Mode of Transportation: Private Vehicle Prescriptions / Home Meds: New prednisone 50 mg tablet 50 mg PO DAILY 5 Days Qty: 5 0RF methocarbamol 500 mg tablet 500 mg PO BID PRN (Reason: muscle pain) Qty: 20 0RF ibuprofen 800 mg tablet 800 mg PO Q6H PRN (Reason: pain) Qty: 20 0RF No Action metformin 500 mg tablet 500 mg PO BID lisinopril 10 mg tablet 10 mg PO DAILY rosuvastatin 5 mg tablet 5 mg PO DAILY Print Language: Amharic Instructions: Lumbar Radiculopathy (ED), Lower Back Exercises (ED) Additional Instructions: Discharge Medications: * Prednisone 50 mg PO daily for 5 days (steroid burst) * Robaxin 500 mg PO twice daily as needed for muscle pain * Ibuprofen 800 mg or Tylenol 500 mg PO every 6 hours as needed for pain Discharge Instructions: * Pain management as above * Return to ER for any red-flag symptoms, including new bowel or bladder incontinence, saddle anesthesia (groin numbness), leg weakness, or numbness * Follow up with pain management clinic for ongoing management and consideration of physical therapy * Activity modification and supportive measures for sciatica Referrals: Radha Agosto NP [Physician, Pain Management] - 1-2 weeks [facility] [Primary Care Provider, Unknown] - 1 week Discharge Date/Time: 06/07/25 22:25
[2025-06-07] MEDS: HYDROCODONE/ACET 5-325 MG TABLET 2 TAB PO (22:20)
== END 2025-06-07 22:25 | disposition home or self-care (01) ==
PROVIDERS: Emergency Provider Internal Medicine
DX: M54.16 Radiculopathy, lumbar region (principal)
CPT/HCPCS: 99283; J7512